=== PATIENT | male | born 1980 | race Caucasian/White ===

== ENCOUNTER 2018-12-18 08:43 | Outpatient (REF) | payer MEDICAID, SELFPAY ==
[2018-12-18 19:32] LABS: TSH 2.83 uIU/mL (0.358-3.74)
[2018-12-18 19:51] LABS: Ferritin 1205 ng/mL (8-388); Iron 187 ug/dL (50-175)
== END 2018-12-18 09:03 ==
LOC: NCHCN 08:43
PROVIDERS: PCP Family Medicine; Visit Provider Nurse Practitioner Family
DX: L63.9 Alopecia areata, unspecified (principal)
CPT/HCPCS: 82728; 83540; 84443

== ENCOUNTER 2018-12-30 08:28 | Outpatient (REF) | payer MEDICAID, SELFPAY ==
[2018-12-30 19:39] LABS: Total Iron Binding Capacity 220 ug/dL (250-450)
[2019-01-07 09:53] LABS: Specimen WB Whole Blood
== END 2018-12-30 08:48 ==
LOC: NCHCN 08:28
PROVIDERS: PCP Family Medicine; Visit Provider Nurse Practitioner Family
DX: R79.89 Other specified abnormal findings of blood chemistry (principal)
CPT/HCPCS: 81256; 83550

== ENCOUNTER 2020-08-10 17:46 | Outpatient (REF) | payer MEDICAID, SELFPAY ==
[2020-08-10 20:23] LABS: HCT 42.9 % (40.0-50.0); HGB 15.1 g/dL (13.5-17.5); MCH 31.7 pg (27.0-33.0); MCHC 35.2 % (32.0-36.0); MCV 90.1 fL (80-95); Platelet Count 294 10^3/uL (130-400); RBC 4.76 10^6/uL (4.36-5.78); RDW 11.8 % (11.8-14.1); RDW-SD 38.8 fL; WBC 5.79 10^3/uL (4.4-10.8)
[2020-08-10 20:56] LABS: ALT 36 U/L (16-63); AST 20 U/L (15-37); Albumin 4.2 g/dL (3.4-5.0); Alkaline Phosphatase 45 U/L (46-116); Anion Gap 6.7 mmol/L (3-11); BUN 25 mg/dL (7-18); Bilirubin, Total 0.3 mg/dL (0.2-1.0); CO2 28.3 mmol/L (21.0-32.0); CREATININE 1.07 mg/dL (0.70-1.30); Calcium 9.3 mg/dL (8.5-10.1); Chloride 101 mmol/L (98-107); Glucose 86 mg/dL (74-106); Sodium 136 mmol/L (136-145); TSH (W/Ref FT4) 2.99 uIU/mL (0.36-3.74); Total Protein 7.4 g/dL (6.4-8.2)
[2020-08-13 16:02] LABS: Testosterone, Free 12.1 ng/dL (4.65-18.1); Testosterone, Total 577 ng/dL (240-950)
== END 2020-08-10 18:06 ==
LOC: NCHCN 17:46
PROVIDERS: PCP Family Medicine; Visit Provider Family Medicine
DX: R53.83 Other fatigue (principal)
CPT/HCPCS: 80053; 84402; 84403; 85027; 84443

== ENCOUNTER 2024-07-23 21:42 | Outpatient (REF) | payer BC, SELFPAY ==
[2024-07-23 19:57] LABS: HCT 44.5 % (40.0-50.0); HGB 15.9 g/dL (13.5-17.5); MCH 31.5 pg (27.0-33.0); MCHC 35.7 % (32.0-36.0); MCV 88 fL (80-95); MPV 9.4 fL (8.0-11.0); Platelet Count 273 10^3/uL (130-400); RBC 5.04 10^6/uL (4.36-5.78); RDW 11.6 % (11.8-14.1); RDW-SD 37.2 fL; WBC 5.93 10^3/uL (4.4-10.8)
[2024-07-23 20:23] LABS: ALT 30 U/L (16-63); AST 18 U/L (15-37); Albumin 4.4 g/dL (3.4-5.0); Alkaline Phosphatase 52 U/L (46-116); BUN 20 mg/dL (7-18); Bilirubin, Total 0.56 mg/dL (0.2-1.0); CREATININE 1.1 mg/dL (0.70-1.30); Calcium 9.4 mg/dL (8.5-10.1); Chloride 105 mmol/L (98-107); Estimated GFR 86.49 (mL/min/1.73m2); Ferritin 136 ng/mL (26-388); Glucose 91 mg/dL (74-106); Potassium 4.3 mmol/L (3.5-5.1); Sodium 140 mmol/L (136-145); Total Protein 7.8 g/dL (6.4-8.2)
== END 2024-07-23 21:43 | disposition home or self-care (01) ==
LOC: NCHCN 21:42
PROVIDERS: PCP Internal Medicine; Visit Provider Internal Medicine
DX: E83.119 Hemochromatosis, unspecified (principal)
CPT/HCPCS: 80053; 85027; 82728